=== PATIENT | female | born 1985 ===

== ENCOUNTER 2017-06-08 04:00 | Emergency (ER) | payer SELFPAY ==
[2017-06-08] MEDS ORDERED: Nicotine 14 MG PATCH TOP SCH (11:00)
[2017-06-08] MEDS ORDERED: hydrOXYzine Pamoate 25 mg Capsule PO PRN (12:15)
[2017-06-08] MEDS ORDERED: Ibuprofen 200 MG TAB ONE ×2 (12:47→20:42)
[2017-06-08] MEDS ORDERED: hydrOXYzine Pamoate 25 mg Capsule ONE (20:42)
[2017-06-09] MEDS ORDERED: Ibuprofen 200 MG TAB ONE ×2 (06:33→19:59)
== END 2017-06-10 07:10 ==
LOC: ERS 04:00
DX: T45.0X2A Poisoning by antiallergic and antiemetic drugs, intentional self-harm, initial encounter (principal); F31.9 Bipolar disorder, unspecified; F41.9 Anxiety disorder, unspecified
CPT/HCPCS: 36415; 51702; 80307; 82550; 87086; 93005; 96360; Q0177